=== PATIENT | female | born 1970 | race Caucasian/White ===

== ENCOUNTER → 2022-09-16 09:49 | Outpatient (CLI) | payer BC, SELFPAY ==
--- NOTE | ~2022-09-16 | DEXA_ITS ---
Bone Density Report Name: UVALDO SWIFT Age: 52 Sex: Female Ethnicity: White Date of : 1970 Indication: screening for osteoporosis; height loss; Referring Provider: KAY RAMIREZ Study: Bone densitometry was performed. Exam Date: September 16, 2022 Accession number: [id number] Bone Density: Region BMD T-score Z-score Classification AP Spine (L1-L4) 1.021 -0.2 0.8 Normal Femoral Neck (Left) 0.741 -1.0 0.0 Normal Total Hip (Left) 0.838 -0.9 -0.2 Normal Femoral Neck (Right) 0.682 -1.5 -0.5 Osteopenia Total Hip (Right) 0.814 -1.0 -0.4 Normal Total Hip Mean 0.826 -1.0 -0.3 Normal World Health Organization criteria for BMD impression classify patients as: Normal (T-score at or above -1.0), Osteopenia (T-score between -1.0 and -2.5), or Osteoporosis (T-score at or below -2.5). 10-year Fracture Risk: FRAX not reported because: Premenopausal woman Clinical Information Provided by Patient: Has used the following medications: Vitamin D Patient maximum height was 69.5 Drinks caffeinated beverages Onset of menses at age 12 Premenopausal Number of children 4 Impression: The patient's bone mass is within expected range for age, gender and ethnicity. Discussion: BONE DENSITY IS WITHIN EXPECTED LIMITS FOR AGE, SEX AND RACE. Bone density is within expected limits for age, sex and race at all sites measured. The patient should follow a healthful lifestyle (good nutrition with adequate calcium and vitamin D, and appropriate weight-bearing exercise). Follow-Up: Consider repeating this study in 2 to 3 years to reassess this patient's status, or sooner if there is some new clinical indication. Reported by: NAEEM on 09/16/2022 10:00:00 AM. Reviewed, dictated and finalized at location A. [facility]
== END ==
PROVIDERS: PCP Internal Medicine; Visit Provider Internal Medicine
DX: Z78.0 Asymptomatic menopausal state (principal); M85.851 Other specified disorders of bone density and structure, right thigh
CPT/HCPCS: 77080

== ENCOUNTER 2024-03-08 14:17 | Outpatient (CLI) | payer BC, SELFPAY ==
--- NOTE | ~2024-03-08 | CT_ITS ---
EXAMINATION: CT diagnostic chest wo con DATE: 03/08/2024 14:33 INDICATION: Pulmonary nodule follow-up TECHNIQUE: Computed tomography (CT) of the chest was performed without intravenous contrast. The dose -length product was 37.35 mGy-cm. Automated exposure control and iterative reconstruction technique were employed. COMPARISON: No prior studies for comparison. FINDINGS: No significant pleural or pericardial effusion. Heart size normal. No thoracic lymphadenopa thy. Upper abdomen is unremarkable. There are calcified granulomas in the right lung base. Mild thora cic spondylosis. There is a 3 mm pleural-based right middle lobe nodule, image 78.. No endobronchial lesions. IMPRESSION: 1. Pleural-based right middle lobe nodule measuring 3 mm, likely benign. Consider follow-up CT in 12 months. Reviewed, dictated and finalized at location B. IMPRESSION: 1. Pleural-based right middle lobe nodule measuring 3 mm, likely benign. Consid er follow-up CT in 12 months.
== END 2024-03-08 14:18 ==
PROVIDERS: PCP Internal Medicine; Visit Provider Internal Medicine
DX: R91.1 Solitary pulmonary nodule (principal)
CPT/HCPCS: 71250

== ENCOUNTER 2025-03-07 11:49 | Outpatient (CLI) | payer BC, SELFPAY ==
--- NOTE | ~2025-03-07 | CT_ITS ---
CLINICAL INDICATION: Solitary pulmonary nodule COMPARISON: 03/08/2024. TECHNIQUE: Multiple contiguous axial images of the chest was performed without the administration of intravenous contrast. This CT examination was performed utilizing dose reduction techniques. DLP: 39 mGy-cm FINDINGS/OBSERVATIONS: LUNG: Redemonstration of a pleural-based nodule within the right middle lobe (axial series, image 82) measu ring 3.4 mm, compared with 4.0 mm on the previous study (axial series, image 78). Scattered subcentimeter calcified nodules detected, suggesting prior granulomatous disease. The lungs are otherwise clear. HEART: The heart is of normal size, without pericardial effusion. MEDIASTINUM: Limited evaluation without intravenous contrast or the presence of mediastinal fat. SOFT TISSUES OF THE CHEST: Unremarkable. BONES OF THE CHEST: No acute fracture. No lytic or blastic lesions are identified. IMPRESSION: Redemonstration of a pleural-based nodule within the right middle lobe, decreased in size previous st udy, as detailed above. Follow-up as per Fleischner guidelines is recommended which suggests a noncontrast CT in 12 months. Reviewed, dictated and finalized at location A. IMPRESSION: Redemonstration of a pleural-based nodule within the right middle lobe, decreas ed in size previous study, as detailed above. Follow-up as per Fleischner guidelines is recommended which suggests a noncontr ast CT in 12 months.
== END 2025-03-07 11:50 | disposition home or self-care (01) ==
PROVIDERS: PCP Internal Medicine; Visit Provider Internal Medicine
DX: R91.1 Solitary pulmonary nodule (principal)
CPT/HCPCS: 71250